=== PATIENT | female | born 1960 | race Asian ===

== ENCOUNTER → 2025-08-03 | Outpatient (CLI) | payer OTHER | END | disposition home or self-care (01) | LOC: RAH 09:04 | PROVIDERS: ATTEND Obstetrics & Gynecology | DX: Z12.31 Encounter for screening mammogram for malignant neoplasm of breast (principal) | CPT/HCPCS: 77067 ==

== ENCOUNTER → 2025-08-31 | Outpatient (CLI) | payer OTHER ==
--- NOTE | 2025-09-02 09:03 | HMCIMG ---
BILATERAL BREAST ULTRASOUND: CLINICAL HISTORY: Moderately heterogeneously dense breasts for baseline bilateral breast sonogram. Finding: Real-time examination of the both breasts demonstrates heterogeneous echotexture throughout both the breasts without evidence of focal solid or cystic masses. IMPRESSION: Dense breasts with no solid or cystic masses seen. I would recommend annual mammography with tomography. With bilateral breast sonogram. FINAL ASSESSMENT: ACR: BI-RAD- 2. Benign: Also a negative assessment; finding(s) benign abnormalities. Management: Routine mammography screening. Likelihood of Cancer: Essentially 0% likelihood of malignancy.
== END | disposition home or self-care (01) ==
LOC: RAH 09:50
PROVIDERS: ATTEND Obstetrics & Gynecology
DX: R92.333 Mammographic heterogeneous density, bilateral breasts (principal); R92.2 Inconclusive mammogram